=== PATIENT | female | born 1950 ===

== ENCOUNTER 2017-10-17 17:35 | Emergency (ER) | payer MEDICARE, OTHER ==
[2017-10-17 17:35] VITALS: BMI 34.6
[2017-10-17] MEDS ORDERED: Belladonna-Phenobarbital PO STA (18:11)
[2017-10-17] MEDS ORDERED: Lactated Ringer's 1,000 ML IVB STA (18:12)
[2017-10-17 18:22] LABS: BASO # 0.1 K/uL (0.0-0.2); BASO % 0.6 % (0.0-2.0); EOS # 0.1 K/uL (0.0-0.7); EOS % 0.7 % (0.0-4.0); HEMATOCRIT 41.7 % (34.0-47.0); LYMPH # 1.1 K/uL (1.0-4.3); LYMPH % 7.7 % (20.0-40.0); MEAN CELL VOLUME 84.3 fL (81.0-99.0); MEAN CORPUSCULAR HEMOGLOBIN 28.3 pg (27.0-31.0); MEAN CORPUSCULAR HGB CONC 33.6 g/dL (33.0-37.0); MEAN PLATELET VOLUME 8.9 fL (7.2-11.7); MONO # 0.6 K/uL (0.0-0.8); MONO % 4.4 % (0.0-10.0); PLATELET COUNT 318 K/uL (130-400); RED CELL DISTRIBUTION WIDTH 14.9 % (11.5-14.5); WHITE BLOOD COUNT 13.7 K/uL (4.8-10.8)
[2017-10-17] MEDS ORDERED: Belladonna-Phenobarbital ONE (18:28)
[2017-10-17] MEDS ORDERED: Lactated Ringer's 1,000 ML ONE (18:29)
[2017-10-17 18:40] LABS: ALB/GLOB RATIO 0.9 (1.0-2.1); ALKALINE PHOSPHATASE 91 U/L (38-126); ALT/SGPT 62 U/L (9-52); AST/SGOT 47 U/L (14-36); BILIRUBIN,TOTAL 0.8 mg/dL (0.2-1.3); BLOOD UREA NITROGEN 13 mg/dL (7-17); CALCIUM 8.6 mg/dl (8.6-10.4); CARBON DIOXIDE 28 mmol/L (22-30); CHLORIDE 95 mmol/L (98-107); GFR AFRICAN-AMERICAN > 60; GLUCOSE,RANDOM 152 mg/dL (65-105); POTASSIUM 3.9 mmol/L (3.6-5.2); SODIUM 135 mmol/L (132-148); TOTAL PROTEIN 7.3 g/dL (6.3-8.3)
--- NOTE | 2017-10-17 19:21 | C.PDOC ---
Time Seen by Provider: 10/17/17 17:56 Chief Complaint (Nursing): Abdominal Pain History Per: Patient, Family Onset/Duration Of Symptoms: Days (about 1 week), Waxing/Waning Current Symptoms Are (Timing): Still Present Severity: Moderate Location Of Pain/Discomfort: Epigastric Associated Symptoms: Nausea, Diarrhea (loose stools) Exacerbating Factors: Food Alleviating Factors: Other (Drinking water) Last Bowel Movement: Today Recent travel outside of the [place]: No Additional History Per: Prior Records Past Medical History Vital Signs: Last Vital Signs Temp 98.8 F 10/17/17 17:42 Pulse 104 H 10/17/17 17:42 Resp 20 10/17/17 17:42 BP 110/65 10/17/17 17:42 Pulse Ox 95 10/17/17 17:42 - Medical History PMH: Arthritis (LOW BACK; KNEES; HANDS), Asthma, Diabetes, Gastrointestinal Ulcer, HTN, Hypercholesterolemia, Malignancy (Cervical Cancer (20 years ago)), Osteoporosis (VIT D DEF. AWAITING BONE DENSITY) Surgical History: Cholecystectomy, Endoscopy (5 years ago) - [employer] [facility] [employer] Procedures ENDOSC POLYPECTOMY OF LG INTEST (03/22/14) Family History: States: Unknown Family Hx - Social History Hx Tobacco Use: No Hx Alcohol Use: No Hx Substance Use: No - Immunization History Hx Tetanus Toxoid Vaccination: No Hx Influenza Vaccination: No Hx Pneumococcal Vaccination: No (UNSURE of last vaccine date) Review Of Systems Except As Marked, All Systems Reviewed And Found Negative. Constitutional: Negative for: Fever, Weakness Cardiovascular: Negative for: Chest Pain Respiratory: Negative for: Shortness of Breath Gastrointestinal: Positive for: Nausea, Abdominal Pain, Diarrhea. Negative for : Vomiting, Melena, Hematochezia, Hematemesis Genitourinary: Negative for: Dysuria Musculoskeletal: Negative for: Neck Pain, Back Pain Skin: Negative for: Rash Neurological: Negative for: Weakness, Numbness, Headache, Dizziness Physical Exam - Physical Exam Appears: Non-toxic, No Acute Distress Skin: Normal Color, Warm, Dry, No Rash Head: Atraumatic, Normacephalic Eye(s): bilateral: Normal Inspection, PERRL, EOMI Oral Mucosa: Moist, No Drooling, No Trismus Neck: Normal ROM, Supple Cardiovascular: Rhythm Regular Respiratory: Normal Breath Sounds, No Accessory Muscle Use Gastrointestinal/Abdominal: Soft, Tenderness (mild epigastric), No Guarding, No Rebound Back: No CVA Tenderness Extremity: Normal ROM, No Pedal Edema, No Calf Tenderness Neurological/Psych: Oriented x3, Normal Motor, Normal Sensation ED Course And Treatment - Laboratory Results Result Diagrams: 10/17/17 18:14 10/17/17 18:14 O2 Sat by Pulse Oximetry: 95 Pulse Ox Interpretation: Normal Progress - Interventions Interventions:: Observation, Intravenous fluid - Medications Administered Intravenous: Antiemetic, Other (PPI) - Data Reviewed Data Reviewed: Lab, Old records - Patient Status Patient status: Mostly improved - Continuity of Care Discussed patient case with:: Patient, Family-HIPPA compliant, ED Nurse - Patient Plan Patient Plan: Discharge, F/U with PCP, Continue present meds Disposition Counseled Patient/Family Regarding: Studies Performed, Diagnosis, Need For Followup, Rx Given - Disposition Disposition: HOME/ ROUTINE Disposition Time: 19:23 Condition: IMPROVED Additional Instructions: Follow up with your doctor within 1-2 weeks for further evaluation and treatment. Return to the ER if you develop fever, vomiting, bloody or black stools, worsening of symptoms or if you have any other concerns. Prescriptions: Pantoprazole Sodium [Protonix] 40 mg PO DAILY #14 ect Instructions: Gastritis (ED) Forms: [facility] (Slovenian) - Clinical Impression Clinical Impression: Epigastric abdominal pain, Loose stools
[2017-10-17 19:26] LABS: EOSINOPHIL 1 % (0-4); NEUTROPHIL 83 % (50-75); TOTAL CELLS COUNTED 100
[2017-10-17 19:49] VITALS: BP 138/70; PULSE 94; RESP 18; TEMP 99.2; O2SAT 96
== END 2017-10-17 20:00 | disposition home or self-care (01) ==
LOC: C.ER 17:35
DX: R10.13 Epigastric pain (principal); R19.7 Diarrhea, unspecified
CPT/HCPCS: 80053; 83690; 84484; 85025; 96374; 96375; 99284; C9113; J2765; J7120

== ENCOUNTER 2018-08-21 11:25 | Emergency (ER) | payer MEDICARE, MEDICAID ==
[2018-08-21 11:26] VITALS: BMI 34.6
[2018-08-21 11:49] VITALS: O2SAT 96
[2018-08-21 12:02] VITALS: BP 121/71; PULSE 90; RESP 20; TEMP 98.3
--- NOTE | 2018-08-21 12:03 | C.PDOC ---
History Of Present Illness 68 year old female presents to ED complaining of generalized itching WITHOUT RASH for x2 days. Denies taking any new medications, new skin care products, and offers no other medical complaints. Time Seen by Provider: 08/21/18 11:37 Chief Complaint (Nursing): Abnormal Skin Integrity History Per: Patient History/Exam Limitations: no limitations Onset/Duration Of Symptoms: Days Current Symptoms Are (Timing): Still Present Past Medical History Reviewed: Historical Data, Nursing Documentation, Vital Signs Vital Signs: Last Vital Signs Temp 99.1 F 08/21/18 11:32 Pulse 102 H 08/21/18 11:32 Resp 18 08/21/18 11:32 BP 145/78 08/21/18 11:32 Pulse Ox 96 08/21/18 11:32 - Medical History PMH: Arthritis, Asthma, Diabetes, Gastrointestinal Ulcer, HTN, Hypercholesterolemia, Malignancy (Cervical Cancer (20 years ago)), Osteoporosis Denies: HIV, Chronic Kidney Disease Surgical History: Cholecystectomy, Endoscopy (5 years ago) - [facility] Procedures ENDOSC POLYPECTOMY OF LG INTEST (03/22/14) Family History: States: No Known Family Hx - Social History Hx Tobacco Use: No Hx Alcohol Use: No Hx Substance Use: No - Immunization History Hx Tetanus Toxoid Vaccination: No Hx Influenza Vaccination: Yes Hx Pneumococcal Vaccination: No Review Of Systems Except As Marked, All Systems Reviewed And Found Negative. Constitutional: Negative for: Fever, Chills Cardiovascular: Negative for: Chest Pain Respiratory: Negative for: Cough, Shortness of Breath Gastrointestinal: Negative for: Nausea, Vomiting Skin: Positive for: Other (Generalized itching.) Neurological: Negative for: Weakness, Numbness Physical Exam - Physical Exam Appears: Well, Non-toxic, No Acute Distress Skin: Warm, Dry, No Rash Head: Atraumatic, Normacephalic Eye(s): bilateral: PERRL, EOMI Oral Mucosa: Moist Neck: Supple Chest: Symmetrical, No Deformity Cardiovascular: Rhythm Regular Respiratory: Normal Breath Sounds, No Rales, No Rhonchi, No Wheezing Extremity: Normal ROM Neurological/Psych: Oriented x3 ED Course And Treatment O2 Sat by Pulse Oximetry: 96 (RA) Pulse Ox Interpretation: Normal Disposition Counseled Patient/Family Regarding: Diagnosis, Need For Followup, Rx Given - Disposition Referrals: Non [facility] Provider, [Non-Staff] - Disposition: HOME/ ROUTINE Disposition Time: 11:59 Condition: STABLE Additional Instructions: USE DOVE SOAP FOR SENSITIVE SKIN. ALL LAUNDRY DETERGENT FOR SENSITIVE SKIN. AVENO ECZEMA MOISTURIZER TWICE A DAY. IF ITCH IS SEVERE MAY TAKE OVER THE COUNTER ANTI ITCH PILL LIKE MARTHA 180 MG OR CLARITIN 10 MG, ONE TAB A DAY NEEDED FOR ITCH. FOLLOW UP WITH YOUR PRIMARY CARE DOCTOR ON THURSDAY WITHOUT FAIL. IF SYMPTOMS GET WORSE OR ANY NEW CONCERNING SYMPTOMS DEVELOP RETURN TO ED. 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 - Scribe Statement The provider has reviewed the documentation as recorded by the Idalmis Whitt All medical record entries made by the Idalmis were at my direction and personally dictated by me. I have reviewed the chart and agree that the record accurately reflects my personal performance of the history, physical exam, me dical decision making, and the department course for this patient. I have also personally directed, reviewed, and agree with the discharge instructions and disposition.
== END 2018-08-21 12:12 | disposition home or self-care (01) ==
LOC: C.ER 11:25
DX: L29.9 Pruritus, unspecified (principal)